=== PATIENT | female | born 2000 | race Asian ===

== ENCOUNTER 2025-03-10 16:55 | Emergency (ER) | payer OTHER ==
[~2025-03-10] VITALS: Ht 157.5 cm; Wt 59.0 kg
[2025-03-10 17:21] VITALS: BP 112/73; TEMP 36.9; O2SAT 99
[2025-03-10 17:25] VITALS: PULSE 84; RESP 18; O2SAT 95
[2025-03-10] MEDS ORDERED: PRED5DRO22 LEFTEYE (21:13)
== END 2025-03-10 21:33 | disposition home or self-care (01) ==
LOC: ER 16:55
DX: S05.8X2A Other injuries of left eye and orbit, initial encounter (principal); H53.19 Other subjective visual disturbances; H57.12 Ocular pain, left eye; Z79.899 Other long term (current) drug therapy; X58.XXXA Exposure to other specified factors, initial encounter; Y93.89 Activity, other specified; Y92.89 Other specified places as the place of occurrence of the external cause; Y99.8 Other external cause status
CPT/HCPCS: 99282